=== PATIENT | female | born 1970 | race American Indian/Alaskan Native ===

== ENCOUNTER 2020-02-26 08:35 | Emergency (ER) | payer SELFPAY ==
[2020-02-26 08:43] VITALS: BP 131/85
[2020-02-26] MEDS ORDERED: FLUORESCEIN 1 MG STRIP OP ONE (09:08)
[2020-02-26] MEDS ORDERED: TETRACAINE 0.5% OPHTH SOLN 4ML OU ONE (09:09)
--- NOTE | 2020-02-26 09:19 | Emergency Department Report ---
[facility] Chief Complaint: Eye Problems Stated Complaint: ALLERGIC REACTION Time Seen by Provider: 02/26/20 09:08 Duration: 2 Days Side: Bilateral Severity: mild Symptoms: Yes Eye Itching, Yes Eye Redness, No Eye Pain, No Mucous Drainage, No Purulent Drainage, No Blurred Vision, No Preceding URI, No H/O Allergic Rhinitis, No Contact Lens Use, No Trauma, No Fever, No Headache Other History: This is a 49-year-old female nontoxic, well nourished in appearance, no acute signs of distress presents to the ED with c/o of bilateral eye redness, itching and crusting that started 2 days ago. Stated symptoms started on the right and now has it bilateral. Patient denies any trauma to the eye. Denies any foreign body sensation or floaters. Patient denies any eye pain. Patient denies any visual changes or decreased vision. Patient denies any fever, chills, nausea, vomiting, chest pain, breath, headache, stiff neck numbness or tingling. Patient stated allergies to PCN and ciprofloxain. ED Review of Systems ROS: Stated complaint: ALLERGIC REACTION Other details as noted in HPI Constitutional: denies: chills, fever Eyes: eye discharge. denies: eye pain, vision change ENT: denies: ear pain, throat pain Respiratory: denies: cough, shortness of breath, wheezing Cardiovascular: denies: chest pain, palpitations Endocrine: no symptoms reported Gastrointestinal: denies: abdominal pain, nausea, diarrhea Genitourinary: denies: urgency, dysuria, discharge Musculoskeletal: denies: back pain, joint swelling, arthralgia Skin: denies: rash, lesions Neurological: denies: headache, weakness, paresthesias Psychiatric: denies: anxiety, depression Hematological/Lymphatic: denies: easy bleeding, easy bruising ED Past Medical Hx - Past Medical History Previous Medical History?: Yes Hx Headaches / Migraines: Yes Additional medical history: Eye irritation and redness - Surgical History Past Surgical History?: Yes Hx Cholecystectomy: Yes Additional Surgical History: cyst - Social History Smoking Status: Current Every Day Smoker Substance Use Type: None - Medications Home Medications: Home Medications Medication Instructions Recorded Confirmed Last Taken Type Clindamycin [Clindamycin CAP] 300 mg PO Q8H #30 cap 07/21/15 Unknown Rx Acetaminophen/Codeine [Tylenol 1 tab PO Q6H PRN #10 tab 10/17/15 Unknown Rx /Codeine # 3 tab] Polymyxin B Sulf/Trimethoprim 2 drops OU TID #1 bottle 02/26/20 Unknown Rx [Polytrim Eye Drops] [facility] Exam - Exam General: Vital signs noted. No distress. Alert and acting appropriately. Eye Exam: Neither Injection, Neither Chemosis, Neither Abnormal Pupil, Neither EOMI, Neither Eye Foreign Body, Neither Lid Foreign Body, Neither Mucous Discharge, Neither Purulent Discharge, Neither Fluorescein Uptake, Neither Fluorescein Uptake (slit lamp), Neither Cell/Flare (slit lamp), Neither Corneal Edema, Neither Photophobia HEENT: No Nasal Congestion, No Pharyngeal Erythema Remainder of HEENT: Normal Lungs: Yes Clear Lung Sounds, Yes Good Air Exchange, No Wheezes, No Stridor, No Cough, No Nasal Flaring, No Retractions, No Use of Accessory Muscles Exam: Bilateral eyes crusting with redness noted. Under Jiang lamp, I used fluorescein and tetracaine to examine cornea for corneal abrasion or foreign body, negative for coronary abrasion or foreign body noted upon exam. Tonopen: right=12, 10, 11. left= 11, 10, 11. Visual acuity: Rigjht=20/20. Left=20/20 ED Course Vital Signs 02/26/20 08:40 Temperature 98.2 F Pulse Rate 89 Respiratory 18 Rate Blood Pressure 131/85 O2 Sat by Pulse 99 Oximetry - Reevaluation(s) Reevaluation #1: 02/26/20 09:22 Patient is speaking in full sentences with no signs of distress noted. ED Medical Decision Making - Medical Decision Making Patient was instructed to follow-up with a long distance billing operator doctor in 2 days or if symptoms worsen and continue return to emergency room as soon as possible. At time of discharge, the patient does not seem toxic or ill in appearance. No acute signs of distress noted. Patient agrees to discharge treatment plan of care. No further questions noted by the patient. Critical care attestation.: If time is entered above; I have spent that time in minutes in the direct care of this critically ill patient, excluding procedure time. ED Disposition Clinical Impression: Conjunctivitis, acute, bilateral Qualifiers: Acute conjunctivitis type: bacterial Qualified Code(s): H10.33 - Unspecified acute conjunctivitis, bilateral Disposition: DC-01 TO HOME OR SELFCARE Is pt being admited?: No Does the pt Need Aspirin: No Condition: Stable Instructions: Conjunctivitis (ED) Additional Instructions: Follow-up with a long distance billing operator doctor in 2 days or if symptoms worsen and continue return to emergency room as soon as possible. Prescriptions: Polymyxin B Sulf/Trimethoprim [Polytrim Eye Drops] 2 drops OU TID #1 bottle Referrals: PRIMARY CARE, [Primary Care Provider] - 3-5 Days ILA CAIN MD [Staff Physician] - 02/28/20 MANISHA WYATT MD [Staff Physician] - 3-5 Days
== END 2020-02-26 10:34 | disposition home or self-care (01) ==
LOC: ED 08:35
DX: H10.33 Unspecified acute conjunctivitis, bilateral (principal); G43.909 Migraine, unspecified, not intractable, without status migrainosus; F17.200 Nicotine dependence, unspecified, uncomplicated; Z90.49 Acquired absence of other specified parts of digestive tract; Z79.899 Other long term (current) drug therapy; Z98.890 Other specified postprocedural states; Z88.1 Allergy status to other antibiotic agents; Z88.0 Allergy status to penicillin

== ENCOUNTER 2021-07-10 14:26 | Emergency (ER) | payer SELFPAY ==
[2021-07-10] MEDS ORDERED: HYDROcodone/ACETAMINOPHEN 5-325 MG TAB PO ONE (14:53)
[2021-07-10] MEDS ORDERED: TETANUS,DIPH,PERTUSS(ACELL) VACCINE 0.5 ML SYRINGE IM ONE (14:54)
--- NOTE | 2021-07-10 14:54 | Event Note ---
ED Screening Note ED Screening Note: SP GLF YESTERDAY ON UNEVEN PAVEMENT CO THUMB PAIN- FULL ROM B KNEE PAIN- ABRASIONS B ANKLE PAIN; L MORE THAN RIGHT NEEDS TDAP This initial assessment/diagnostic orders/clinical plan/treatment(s) is/are subject to change based on patients health status, clinical progression and re- assessment by fellow clinical providers in the ED. Further treatment and workup at subsequent clinical providers discretion. Patient/guardian urged not to elope from the ED as their condition may be serious if not clinically assessed and managed. Initial orders include: XR
--- NOTE | 2021-07-10 15:18 | Emergency Department Report ---
ED Fall HPI - General Chief Complaint: Extremity Injury, Lower Stated Complaint: FALL LT FOOT INJURY Time Seen by Provider: 07/10/21 14:52 Source: patient Mode of arrival: Wheelchair - Related Data Previous Rx's Medication Instructions Recorded Last Taken Type Clindamycin [Clindamycin CAP] 300 mg PO Q8H #30 cap 07/21/15 Unknown Rx Acetaminophen/Codeine [Tylenol 1 tab PO Q6H PRN #10 tab 10/17/15 Unknown Rx /Codeine # 3 tab] Polymyxin B Sulf/Trimethoprim 2 drops OU TID #1 bottle 02/26/20 Unknown Rx [Polytrim Eye Drops] Allergies Allergy/AdvReac Type Severity Reaction Status Date / Time amoxicillin Allergy Unknown Verified 07/10/21 14:33 Penicillins Allergy Unknown Verified 07/10/21 14:33 adhesive tape AdvReac Unknown Verified 07/10/21 14:33 ED Review of Systems ROS: Stated complaint: FALL LT FOOT INJURY Other details as noted in HPI Comment: All other systems reviewed and negative ED Past Medical Hx - Past Medical History Previous Medical History?: Yes Hx Headaches / Migraines: Yes Additional medical history: Eye irritation and redness - Surgical History Past Surgical History?: Yes Hx Cholecystectomy: Yes Additional Surgical History: cyst - Family History Family history: asthma - Social History Smoking Status: Current Every Day Smoker Substance Use Type: None - Medications Home Medications: Home Medications Medication Instructions Recorded Confirmed Last Taken Type Clindamycin [Clindamycin CAP] 300 mg PO Q8H #30 cap 07/21/15 Unknown Rx Acetaminophen/Codeine [Tylenol 1 tab PO Q6H PRN #10 tab 10/17/15 Unknown Rx /Codeine # 3 tab] Polymyxin B Sulf/Trimethoprim 2 drops OU TID #1 bottle 02/26/20 Unknown Rx [Polytrim Eye Drops] ED Physical Exam - General Limitations: No Limitations General appearance: alert, in no apparent distress - Head Head exam: Present: atraumatic, normocephalic - Eye Eye exam: Present: normal appearance - ENT ENT exam: Present: mucous membranes moist - Neck Neck exam: Present: normal inspection - Respiratory Respiratory exam: Present: normal lung sounds bilaterally. Absent: respiratory distress - Cardiovascular Cardiovascular Exam: Present: regular rate, normal rhythm. Absent: systolic m urmur, diastolic murmur, rubs, gallop - GI/Abdominal GI/Abdominal exam: Present: soft, normal bowel sounds - Extremities Exam Extremities exam: Present: normal inspection - Back Exam Back exam: Present: normal inspection - Neurological Exam Neurological exam: Present: alert, oriented X3 - Psychiatric Psychiatric exam: Present: normal affect, normal mood - Skin Skin exam: Present: warm, dry, intact, normal color. Absent: rash ED Medical Decision Making - Radiology Data Radiology results: report reviewed, image reviewed NAP - Differential Diagnosis RO FX Critical care attestation.: If time is entered above; I have spent that time in minutes in the direct care of this critically ill patient, excluding procedure time. ED Disposition Clinical Impression: Fall, Contusion, Abrasion Disposition: HOME / SELF CARE / HOMELESS Is pt being admited?: No Does the pt Need Aspirin: No Condition: Stable Instructions: Contusion, [id number] Additional Instructions: ICE REST ELEVATE MOTRIN OR TYLENOL FOR PAIN CRUTCHES AND JUAN MANUEL FOR COMFORT FOLLOW UP WITH PCP IN 48 HOURS FOR RECHECK REFERRAL BELOW DO NOT USE CRUTCHES FOR PROLONGED TIME- CAN CAUSE DISUSE INJURY KEEP WOUNDS CLEAN Referrals: MANISHA WYATT MD [Staff Physician] - 3-5 Days Time of Disposition: 15:30
--- NOTE | 2021-07-10 15:19 | XRay Report ---
BILATERAL ANKLES 3 VIEWS INDICATION: PAIN SP GLF. Patient fell one day ago injuring both ankles COMPARISON: None. IMPRESSION: No acute osseous or soft tissue abnormality. No significant DJD. Signer Name: Dominik Medrano Jr, MD Signed: 07/10/2021 3:14 PM Workstation Name: [id number]
== END 2021-07-10 16:54 | disposition home or self-care (01) ==
LOC: ED 14:26
DX: S90.02XA Contusion of left ankle, initial encounter (principal); S90.01XA Contusion of right ankle, initial encounter; S80.212A Abrasion, left knee, initial encounter; S80.211A Abrasion, right knee, initial encounter; F17.210 Nicotine dependence, cigarettes, uncomplicated; Z90.49 Acquired absence of other specified parts of digestive tract; E11.9 Type 2 diabetes mellitus without complications; J45.909 Unspecified asthma, uncomplicated; W19.XXXA Unspecified fall, initial encounter; Y93.89 Activity, other specified; Y92.89 Other specified places as the place of occurrence of the external cause; Y99.8 Other external cause status
CPT/HCPCS: 90471; 90715; 99283